=== PATIENT | female | born 1930 | race Caucasian/White ===

== ENCOUNTER 2017-08-03 10:21 | Emergency (ER) | payer OTHER, MEDICARE ==
[~2017-08-03] VITALS: Ht 162.6 cm; Wt 72.6 kg
[2017-08-03 10:29] VITALS: BP 148/63
== END 2017-08-03 11:17 | disposition home or self-care (01) ==
LOC: ER 10:21
DX: M79.662 Pain in left lower leg (principal); M79.661 Pain in right lower leg; Z88.5 Allergy status to narcotic agent; W01.0XXA Fall on same level from slipping, tripping and stumbling without subsequent striking against object, initial encounter; Y93.89 Activity, other specified; Y92.89 Other specified places as the place of occurrence of the external cause; Y99.8 Other external cause status